=== PATIENT | male | born 2000 | race Caucasian/White ===

== ENCOUNTER 2021-03-03 17:24 | Emergency (ER) | payer SELFPAY ==
[~2021-03-03] VITALS: Ht 172.7 cm; Wt 74.8 kg
[2021-03-03 17:44] VITALS: BP_SYST 132
--- NOTE | 2021-03-03 17:50 | NUR ---
Placed in room 3 . Placed on clinical research monitor, blood pressure machine and pulse oximeter. To gown for exam. Side rails up. Report given to PROMISE Magana.
--- NOTE | 2021-03-03 18:02 | NUR ---
RECEIVED PT, BRADY FROM HOME FOR SYNCOPAL EPISODE AFTER WORKING OUT. FELL TWICE, MAYBE PAVEMENT (PT UNAWARE) MOM FOUND HIM THE SECOND TIME. REPORTS HE'S CUTTING WEIGHT. ONL Y HAD A NUTRIOTNAL BAR THIS AM. BS-93 IN FIELD. DRY BLOOD NOTED TO RT CHEEK/EYE AREA, CLEANSED AREA, ABRASION ONLY. NO OPEN WOUNDS NOTED. DENIES ANY HEAD PAIN OR NAUSEA AT THIS TIME. NO HEMATOMA SEEN. PT APPROPRIATE AT THIS TIME.
[2021-03-03] MEDS: NACL 0.9% 1,000 ML IV ONE (18:37)
--- NOTE | 2021-03-03 18:38 | NUR ---
PT GOING TO CT SCAN
[2021-03-03 18:48] LABS: BASOPHILS % (AUTO) 0.3 % (0.0-2.0); EOSINOPHILS % (AUTO) 0.1 % (0.0-4.0); HEMATOCRIT 45.8 % (36-54); HEMOGLOBIN 16.2 g/dL (14.0-18.0); LYMPHOCYTES # (AUTO) 1.5 K/uL (1.0-5.5); LYMPHOCYTES % (AUTO) 14.7 % (20.5-51.5); MEAN CORPUSCULAR HEMOGLOBIN 33 pg (27-31); MEAN CORPUSCULAR HGB CONC 36 % (32-36); MEAN CORPUSCULAR VOLUME 92 fL (79.0-98.0); MONOCYTES # (AUTO) 0.7 K/uL (0.0-1.0); MONOCYTES % (AUTO) 6.5 % (1.7-9.3); NEUTROPHILS # (AUTO) 8.1 K/uL (1.8-7.7); NEUTROPHILS % (AUTO) 78.4 % (40.0-70.0); PLATELET COUNT (AUTO) 267 K/uL (130-430); RED CELL DISTRIBUTION WIDTH 13.7 % (9.0-15.0); WHITE BLOOD COUNT (AUTO) 10.4 K/uL (4.5-11.0)
[2021-03-03 18:58] LABS: ANION GAP 6 (5-15); CALCIUM 9.6 mg/dL (8.4-11.0); CHLORIDE 102 mmol/L (98-107); CREATININE 1.03 mg/dL (0.55-1.30); GLUCOSE 102 mg/dL (70-99); SODIUM SERUM 138 mmol/L (136-145); UREA NITROGEN, BLOOD 14 mg/dL (8-21)
[2021-03-03 19:04] LABS: ALANINE AMINOTRANSFERASE 31 U/L (12-78); ALBUMIN 4.4 g/dL (3.4-4.8); ASPARTATE AMINOTRANSFERASE 24 U/L (10-37); TOTAL BILIRUBIN 0.4 mg/dL (0.0-1.0)
[2021-03-03 19:05] LABS: GFR AFRICAN AMERICAN 120 mL/min (>90)
[2021-03-03 19:06] LABS: ALCOHOL, BLOOD < 3 mg/dL (<10)
--- NOTE | 2021-03-03 19:08 | NUR ---
Received report from PROMISE Magana and continue care of patient.
--- NOTE | 2021-03-03 20:30 | NUR ---
Urine specimen collected and sent to lab.
[2021-03-03 20:59] LABS: BILIRUBIN,URINE NEGATIVE (NEGATIVE); BLOOD, URINE NEGATIVE (NEGATIVE); CLARITY/URINE CLEAR (CLEAR); COLOR,URINE YELLOW (YELLOW); GLUCOSE,URINE NEGATIVE (NEGATIVE); KETONES,URINE NEGATIVE (NEGATIVE); LEUKOCYTE ESTERASE ,URINE NEGATIVE (NEGATIVE); NITRITE, URINE NEGATIVE (NEGATIVE); PROTEIN URINE NEGATIVE (NEGATIVE); UROBILINOGEN,URINE 0.2 (0.2-1.0)
--- NOTE | 2021-03-03 21:37 | NUR ---
Spoke with patient's family (older sister) to update patient's status.
[2021-03-03 21:52] LABS: BARBITURATE, URINE NEGATIVE (NEG <=200); BENZODIAZEPINE, URINE NEGATIVE (NEG <=150); CANNABINOID, URINE POSITIVE (NEG <=50); COCAINE, URINE NEGATIVE (NEG <=150); METHAMPHETAMINES SCREEN,URINE NEGATIVE (NEG <=500); OPIATE, URINE NEGATIVE (NEG <=100); PHENCYCLIDINE SCREEN,URINE NEGATIVE (NEG <=25); UR TRICYCLIC ANTIDEPRESSANTS NEGATIVE (NEG <=300); URINE AMPHETAMINE NEGATIVE (NEG <=500); URINE METHADONE NEGATIVE (NEG <=200); URINE OXYCODONE SCREEN NEGATIVE (NEG <=100); URINE PROPOXYPHENE SCREEN NEGATIVE (NEG <=300)
[2021-03-03] MEDS: ACETAMINOPHEN 325 MG TABLET PO ONE (22:27)
[2021-03-03 22:30] VITALS: BP_SYST 132
--- NOTE | 2021-03-03 22:30 | NUR ---
Patient given written and verbal discharge instructions and verbalizes understanding. ER MD discussed with patient the results and treatment provided. Patient in stable condition. ID arm band removed. IV catheter removed intact and dressing applied, no active bleeding. No Rx given. Patient educated on pain management and to follow up with PMD. Pain Scale 2/10. Opportunity for questions provided and answered.
== END 2021-03-03 22:30 | disposition home or self-care (01) ==
LOC: SED 17:24
DX: R55 Syncope and collapse (principal); Z79.899 Other long term (current) drug therapy
CPT/HCPCS: 36415; 70450; 71045; 76376; 80053; 80307; 81003; 84484; 85025; 93005; 96374; 99285; G0482